=== PATIENT | female | born 1955 | race Two or more races ===

== ENCOUNTER 2020-12-10 12:24 | Emergency (ER) | payer OTHER ==
[~2020-12-10] VITALS: Ht 154.9 cm; Wt 74.5 kg
[2020-12-10] MEDS ORDERED: CLON1TAB12 PO (13:12)
[2020-12-10] MEDS ORDERED: METO-391 PO (13:12)
[2020-12-10] MEDS ORDERED: AMIT50TA3 PO (13:12)
[2020-12-10] MEDS ORDERED: HYDR50CA9 PO (13:12)
[2020-12-10] MEDS ORDERED: AMIT25TA9 PO (13:16)
[2020-12-10] MEDS ORDERED: ATOR10TA69 PO (13:16)
[2020-12-10] MEDS ORDERED: ClonazePAM 1 MG TABLET PO ONE (15:15)
[2020-12-10 17:02] VITALS: BP 115/66
== END 2020-12-10 17:04 | disposition home or self-care (01) ==
LOC: EMS 12:24
DX: F41.9 Anxiety disorder, unspecified (principal); R06.02 Shortness of breath; R00.2 Palpitations; I10 Essential (primary) hypertension; Z76.0 Encounter for issue of repeat prescription
CPT/HCPCS: 93005; 99283